=== PATIENT | female | born 1960 | race Caucasian/White ===

== ENCOUNTER → 2016-03-26 | Outpatient (CLI) | payer OTHER ==
--- NOTE | 2016-03-26 14:23 | REP ---
MAXILLOFACIAL CT WITHOUT CONTRAST: HISTORY: Chronic sinusitis. A soft tissue mass is present in the left nasal passage. There is erosion of the left middle nasal turbinate. There is partial erosion of the nasal septum with extension into the right nasal passage. There is erosion of the left uncinate process with extension into the left maxillary sinus. There is partial erosion of the posterior wall of the left ethmoid sinus with extension into the left sphenoid sinus. There is no extension into the left orbit. There is no definite extension into the anterior cranial fossa. There is complete opacification of the residual left ethmoid sinus. There is complete opacification of the sphenoid and left frontal sinuses. There is almost complete opacification of the right frontal sinus. Mild mucosal thickening is present in the left maxillary sinus. Minimal mucosal thickening is present in the right ethmoid sinus. The right maxillary sinus is clear. The right osteomeatal unit is patent. The inferior and right middle nasal turbinates are partially paradoxical. There is moderate deviation of the nasal septum to the right. The medial villalpando of the orbits and optic canals are intact. The carotid canals form a segment of the posterolateral villalpando of the sphenoid sinus. The sphenoid sinus septum inserts into the left internal carotid canal wall. IMPRESSION: There is a soft tissue mass that appears to be arising from the left nasal passage with extension into the right nasal passage, left ethmoid , maxillary, and sphenoid sinuses. This may represent a benign neoplasm such as an inverted papilloma or a malignant neoplasm such as squamous cell carcinoma, adenocarcinoma, adenoid cystic carcinoma, or mucoepidermoid. Signed by Raffy Lopez MD 03/26/2016 02:33 P
== END ==
LOC: M RAD 12:53
PROVIDERS: ATTEND Specialist
DX: D38.5 Neoplasm of uncertain behavior of other respiratory organs (principal)

== ENCOUNTER → 2016-04-15 | Outpatient (CLI) | payer OTHER ==
[2016-04-15 13:29] LABS: INR 0.98
== END ==
LOC: M LAB 12:26
PROVIDERS: ATTEND Specialist
DX: J34.2 Deviated nasal septum (principal)

== ENCOUNTER 2016-05-11 10:35 | Day surgery (SDC) | payer OTHER ==
[~2016-05-11] VITALS: Ht 160 cm; Wt 92.1 kg
[~2016-05-11 10:35] MED LIST: ALBU17IN2 INH; ASPI1TAB PO; CRES40TA PO; CYCL5TA PO; HYDR12.55 PO; K-TA10TA2 PO; MONT10TA2 PO; PULM0.5S INH; ROPI0.5T PO
[2016-05-11] MEDS ORDERED: LR 1,000 ML IV SCH ×2 (11:00→16:00)
[2016-05-11] MEDS ORDERED: MIDAZOLAM INJ 2 MG/2 ML VIAL (J2250) IV PRN (12:45)
[2016-05-11] MEDS ORDERED: LIDOCAINE 2% INJ 100 MG/5 ML SDV (FOR ANES.) As Ordered ONE (12:53)
[2016-05-11] MEDS ORDERED: fentaNYL 250 MCG/5 ML INJECTION (J3010) As Ordered ONE (12:53)
[2016-05-11] MEDS ORDERED: PROPOFOL 200 MG/20 ML VIAL As Ordered ONE (12:53)
[2016-05-11] MEDS ORDERED: MIDAZOLAM INJ 2 MG/2 ML VIAL (J2250) As Ordered ONE (12:53)
[2016-05-11] MEDS ORDERED: ROCURONIUM BROMIDE 50 MG/5 ML VIAL As Ordered ONE (12:53)
[2016-05-11] MEDS ORDERED: METHYLENE BLUE 0.5% (5MG/ML) 10 ML AMP (PROVAYBLUE)(Q9968 PER 1MG) As Ordered ONE (13:39)
[2016-05-11] MEDS ORDERED: LIDOCAINE W/EPINEPHRINE 1% 20ML VIAL As Ordered ONE (13:39)
[2016-05-11] MEDS ORDERED: EPINEPHrine INJ 1 MG/ML 1ML VIAL/AMP As Ordered ONE ×2 (13:40→15:07)
[2016-05-11] MEDS ORDERED: OXYMETAZOLINE NASAL SPRAY (AFRIN) As Ordered ONE (13:41)
[2016-05-11] MEDS ORDERED: dexameTHASONE 4 MG/ML 1ML VIAL (J1100) As Ordered ONE (14:39)
[2016-05-11] MEDS ORDERED: PHENYLephrine HCL 500 MCG/5 ML (100MCG/ML) SYRINGE (J2370) As Ordered ONE (14:44)
[2016-05-11] MEDS ORDERED: ePHEDrine SULFATE 25 MG/5 ML(5MG/ML) SYRINGE As Ordered ONE (14:44)
[2016-05-11] MEDS ORDERED: GLYCOPYRROLATE INJ 0.2 MG/ML 2 ML VIAL As Ordered ONE (14:56)
[2016-05-11] MEDS ORDERED: NEOSTIGMINE 1MG/ML 5 ML SYRINGE (J2710) As Ordered ONE (14:56)
[2016-05-11] MEDS ORDERED: PERCOCET 5MG/325MG TAB PO PRN (16:00)
[2016-05-11] MEDS ORDERED: METOCLOPRAMIDE INJ 10MG/2ML VIAL (J2765) IV PRN (16:00)
[2016-05-11] MEDS ORDERED: ONDANSETRON 4MG/2ML VIAL (J2405) IV PRN (16:00)
[2016-05-11] MEDS ORDERED: fentaNYL 100 MCG/2 ML INJECTION (J3010) IV PRN (16:00)
[2016-05-11] MEDS ORDERED: hydrALAZINE INJ 20 MG/ML VIAL As Ordered ONE (17:10)
[2016-05-11 17:21] VITALS: BP 195/76
[2016-05-11] MEDS ORDERED: hydrALAZINE INJ 20 MG/ML VIAL IV PRN (17:45)
[2016-05-11 19:00] VITALS: BP 140/80
[2016-05-11] MEDS ORDERED: ALBUTEROL SULFATE 2.5 MG/0.5 ML INH NEB SOLN NEB PRN (19:00)
[2016-05-11] MEDS ORDERED: BUDESONIDE 0.5 MG/2 ML INHALATION SUSPENSION INH PRN (19:00)
[2016-05-11 20:00] VITALS: BP 153/90
[2016-05-11] MEDS: rOPINIRole 0.25 MG TAB(REQUIP) PO SCH (20:15)
[2016-05-11] MEDS: DOXYCYCLINE HYCLATE 100 MG TAB PO SCH (20:15)
[2016-05-11] MEDS: PERCOCET 5MG/325MG TAB PO PRN (20:47)
[2016-05-11] MEDS ORDERED: ROSUVASTATIN 10 MG TAB (CRESTOR) PO SCH (21:00)
[2016-05-12] VITALS: BP 162/76
[2016-05-12 04:00] VITALS: BP 178/84
[2016-05-12 08:00] VITALS: BP 140/79
[2016-05-12] MEDS: DOXYCYCLINE HYCLATE 100 MG TAB PO SCH (08:44)
[2016-05-12] MEDS: rOPINIRole 0.25 MG TAB(REQUIP) PO SCH (08:45)
[2016-05-12] MEDS: PERCOCET 5MG/325MG TAB PO PRN (08:45)
[2016-05-12] MEDS ORDERED: MONTELUKAST 10 MG TAB PO SCH (09:00)
[2016-05-12] MEDS ORDERED: POTASSIUM CHLORIDE 10 MEQ SR TABLET PO SCH (09:00)
[2016-05-12] MEDS ORDERED: ASPIRIN 81 MG ENTERIC TAB PO SCH (09:00)
[2016-05-12] MEDS ORDERED: hydroCHLOROthiazide 12.5 MG CAPSULE PO SCH (09:00)
--- NOTE | 2016-05-15 12:09 | RO ---
DATE OF PROCEDURE: 05/11/2016 PREPROCEDURE DIAGNOSES: 1. Left nasal polyposis. 2. Chronic sinusitis. 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 PROCEDURE: Left endoscopic resection of nasal mass with maxillary antrostomy and ethmoidectomy. SURGEON: Dr. José Collins HOP GROWER: ANESTHESIA: INDICATIONS: This is a 55-year-old who presents with left sided nasal obstruction. CT scanning demonstrated an expanding mass without bone destruction. It filled the superior left nasal cavity emerging from the left middle meatus obstructing the maxillary sinus ostia and the anterior ethmoid cells. There is no evidence of any bone destruction, either in the orbits, septum or the cribriform area. DESCRIPTION OF PROCEDURE: Satisfactory general endotracheal tube anesthesia administered, pharyngeal pack was placed. The nose prepared for surgery by placing cotton-soaked pledgets of Afrin solution to the nasal cavity on the left side. Surgery began by using a 0 degree telescope. 1% Xylocaine with 1:100,000 epinephrine was used to inject the obvious nasal mass that could be seen on endoscopy. As the procedure began, it became quite apparent this was not simple inflammatory tissue. It was quite vascular and bleeding was far beyond what you would expect from polyp tissue. With the microdebrider, the mass was rapidly resected to prevent significant bleeding. It was possible to resect the majority of the mass, and then adrenaline pledgets were placed into the middle meatus to identify the normal landmarks. The middle turbinate was partially absent anteriorly after resecting this mass but the septum was intact. The mass seemed to emerge either from the posterior to mid septum inferior or it could have risen from the lateral nasal wall, it was not possible to tell. The gross mass was resected completely into the anterior and posterior ethmoid cells which had been somewhat scalloped out by the mass. The lateral nasal wall was inspected and maxillary sinus ostia was identified. It then was enlarged and mucopus was evacuated from the maxillary sinus. Using the microdebrider, all visible tissue was resected down to the bony framework without attempting to do a complete posterior ethmoidectomy. Frozen sections were sent during the procedure and the results came back undifferentiated or possibly poorly differentiated carcinoma. With this, I elevated to do no further surgery other than to debulk the mass. Adrenalin pledgets were placed for five minutes and these were removed. There was no significant bleeding. A Nasopore pledget was used to pack the cavity which was created. Pharyngeal pack was removed and the throat was suctioned. The patient was awakened, extubated, and sent to recovery in satisfactory condition. She will be seen back in the office in 1 week to await the results of the final pathology.
== END 2016-05-12 12:00 | disposition home or self-care (01) ==
LOC: M SDC 10:35 → M MS5PR 18:22 → M SDC 05-12 12:00
PROVIDERS: ATTEND Specialist
DX: C31.1 Malignant neoplasm of ethmoidal sinus (principal); C30.0 Malignant neoplasm of nasal cavity; J45.909 Unspecified asthma, uncomplicated; I10 Essential (primary) hypertension; E78.5 Hyperlipidemia, unspecified; K21.9 Gastro-esophageal reflux disease without esophagitis; Z79.82 Long term (current) use of aspirin; Z88.0 Allergy status to penicillin; E66.9 Obesity, unspecified; Z79.899 Other long term (current) drug therapy

== ENCOUNTER → 2016-06-02 | Outpatient (CLI) | payer OTHER ==
--- NOTE | 2016-06-02 20:55 | REP ---
MRI BRAIN WITHOUT AND WITH CONTRAST: HISTORY: Ethmoid sinus neoplasm. CONTRAST: ProHance 17 mL COMPARISON: CT 03/26/2016 The patient is status post left uncinectomy, left middle nasal turbinectomy and partial left ethmoidectomy. A small amount of enhancing tissue is present in the anterior left ethmoid region. Mucosal thickening is present in the residual lateral left ethmoid sinus, frontal sinuses and sphenoid sinus. The right ethmoid sinus and maxillary sinuses are clear. Areas of increased signal intensity on T2-weighted images are present in the left temporal and parietal lobe. There is dilatation of the overlying cortical sulci. This represents gliosis and encephalomalacia. There is no intraparenchymal hemorrhage, infarct, mass or midline shift. There is no abnormal intracranial enhancement. There is no hydrocephalus or extracerebral collection. IMPRESSION: 1. Postoperative changes as described above. There is a small amount of enhancing tissue in the anterior left ethmoid region. This may represent granulation tissue, however, the possibility of residual or recurrent tumor cannot be excluded. 2. Left temporal parietal lobe encephalomalacia. Signed by Raffy Lopez MD 06/03/2016 08:48 A
== END ==
LOC: M RAD 17:00
PROVIDERS: ATTEND Specialist
DX: C31.1 Malignant neoplasm of ethmoidal sinus (principal)

== ENCOUNTER → 2017-08-31 | Outpatient (CLI) | payer OTHER | LOC: M RAD 13:21 | DX: C31.1 Malignant neoplasm of ethmoidal sinus (principal); J34.2 Deviated nasal septum | CPT/HCPCS: 70486 ==

== ENCOUNTER → 2018-11-15 | Outpatient (CLI) | payer OTHER, MEDICAID ==
[~2018-11-15] MED LIST changes: -ASPI1TAB PO; +ASPI81TA26 PO; -CYCL5TA PO; +CYCL5TAB PO; +ISOVUE-370 76% 100ML VIAL (Q9967) As Ordered ONE
--- NOTE | 2018-11-15 11:21 | REP ---
Maxillofacial CT study with IV contrast: History: Malignant neoplasm of the ethmoid sinus. 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 Comparison study August 31, 2017. CT contrast dose: 75 mL of intravenous Isovue 370. CT findings: There is a large patent nasoantral window and the patient is status post ethmoid bullectomy. There is a small mucous retention cyst again noted in the posterior most ethmoid air cell on the left. This is slightly larger than on the August 31, 2017 prior study but not new. It measures 10 mm in greatest diameter. There is mild mucosal thickening in one or two ethmoid air cells on the right. Ostiomeatal complexes are patent. Bony nasal septum bows somewhat to the right. There is a small high perforation in the septum also unchanged. The left middle turbinate has been resected. Sinuses are otherwise clear. There is no evidence of recurrent mass. No intraorbital lesion is seen. Frontal sinuses are clear. Bony orbital margins are intact. Impression: 1 cm mucous retention cyst in the posterior ethmoid air cell on the left. Postoperative changes. Otherwise negative. Electronically Signed by Nate Peralta MD 11/15/2018 12:39 P
== END ==
LOC: M RAD 09:30
PROVIDERS: ATTEND Specialist
DX: C31.1 Malignant neoplasm of ethmoidal sinus (principal)
CPT/HCPCS: 70487; Q9967

== ENCOUNTER → 2019-04-03 | Outpatient (REF) | payer OTHER, MEDICAID ==
[~2019-04-03] MED LIST changes: -ISOVUE-370 76% 100ML VIAL (Q9967) As Ordered ONE; -MONT10TA2 PO; +MONT10TA4 PO; -ROPI0.5T PO; +ROPI0.5T3 PO
== END ==
LOC: M LAB REF 15:41
PROVIDERS: ATTEND Specialist
DX: D23.39 Other benign neoplasm of skin of other parts of face (principal)

== ENCOUNTER → 2020-04-23 | Outpatient (CLI) | payer OTHER, MEDICAID ==
[~2020-04-23] MED LIST changes: +MONT10TA10 PO; -MONT10TA4 PO
[2020-04-23 12:44] LABS: BASO % 0.4 % (0.0-1.0); EOS # 0.2 10^3/uL (0.0-0.5); EOS % 2.5 % (0.0-3.0); HEMATOCRIT 37.9 % (36.0-47.0); HEMOGLOBIN 12.4 g/dl (12.0-15.5); LYMPH # 1.3 10^3/uL (1.5-5.0); LYMPH % 17.9 % (24.0-44.0); MEAN CORPUSCULAR HEMOGLOBIN 28.4 pg (27.0-33.0); MEAN CORPUSCULAR HGB CONC 32.7 g/dl (32.0-36.5); MEAN CORPUSCULAR VOLUME 86.9 fl (80.0-96.0); MONO # 0.5 10^3/uL (0.0-0.8); MONO % 7.2 % (2.0-8.0); NEUTROPHILS # 5.1 10^3/uL (1.5-8.5); NEUTROPHILS % 71.7 % (36.0-66.0); PLATELET COUNT, AUTOMATED 242 10^3/uL (150-450); RED BLOOD COUNT 4.36 10^6/uL (4.00-5.40); WHITE BLOOD COUNT 7.1 10^3/uL (4.0-10.0)
[2020-04-23 13:21] LABS: BLOOD UREA NITROGEN 14 MG/DL (7-18); CALCIUM LEVEL 8.9 MG/DL (8.5-10.1); CARBON DIOXIDE LEVEL 35 MEQ/L (21-32); CHLORIDE LEVEL 103 MEQ/L (98-107); CREATININE FOR GFR 0.82 MG/DL (0.55-1.30); GLOMERULAR FILTRATION RATE > 60.0 (>51); GLUCOSE, FASTING 98 MG/DL (70-100); POTASSIUM SERUM 3.2 MEQ/L (3.5-5.1); SODIUM LEVEL 142 MEQ/L (136-145)
== END ==
LOC: M LAB 11:46
PROVIDERS: ATTEND Internal Medicine Cardiovascular Disease
DX: Z79.899 Other long term (current) drug therapy (principal)

== ENCOUNTER → 2023-03-12 | Outpatient (CLI) | payer OTHER, MEDICAID ==
[~2023-03-12] MED LIST changes: -K-TA10TA2 PO; -MONT10TA10 PO; +MONT10TA97 PO; +POTA-165 PO; -ROPI0.5T3 PO; +ROPI0.5T33 PO
== END ==
LOC: M RAD 11:12
PROVIDERS: ATTEND Otolaryngology
DX: E04.2 Nontoxic multinodular goiter (principal)

== ENCOUNTER 2023-10-01 11:32 | Emergency (ER) | payer OTHER, MEDICAID ==
[~2023-10-01] VITALS: Ht 160 cm; Wt 86.8 kg
[2023-10-01 13:32] LABS: BASO % 0.5 % (0.0-1.0); EOS # 0.2 10^3/uL (0.0-0.5); EOS % 2.7 % (0.0-3.0); HEMATOCRIT 36.5 % (36.0-47.0); HEMOGLOBIN 11.7 g/dl (12.0-15.5); LYMPH # 1.4 10^3/uL (1.5-5.0); LYMPH % 23.2 % (24.0-44.0); MEAN CORPUSCULAR HEMOGLOBIN 27.8 pg (27.0-33.0); MEAN CORPUSCULAR HGB CONC 32.1 g/dl (32.0-36.5); MEAN CORPUSCULAR VOLUME 86.7 fl (80.0-96.0); MONO # 0.4 10^3/uL (0.0-0.8); MONO % 6.2 % (2.0-8.0); NEUTROPHILS # 3.9 10^3/uL (1.5-8.5); NEUTROPHILS % 67.1 % (36.0-66.0); PLATELET COUNT, AUTOMATED 205 10^3/uL (150-450); RED BLOOD COUNT 4.21 10^6/uL (4.00-5.40); WHITE BLOOD COUNT 5.8 10^3/uL (4.0-10.0)
[2023-10-01 13:45] LABS: ERYTHROCYTE SEDIMENTATION RATE 30 mm/hr (0-30)
[2023-10-01 13:49] LABS: INR 1.08; PARTIAL THROMBOPLASTIN TIME 30.6 SECONDS (24.8-34.2); PROTHROMBIN TIME 13.7 SECONDS (12.5-14.5)
[2023-10-01 13:53] LABS: C REACTIVE PROTEIN QUANTITATIV < 0.40 MG/DL (<1.0)
[2023-10-01 13:55] LABS: ALKALINE PHOSPHATASE 61 U/L (46-116); ALT/SGPT 58 U/L (7.0-40); AST/SGOT 45 U/L (<34); BILIRUBIN,DIRECT 0.1 MG/DL (<0.4); BILIRUBIN,TOTAL 0.4 MG/DL (0.3-1.2); BLOOD UREA NITROGEN 17 MG/DL (9-23); CALCIUM LEVEL 8.7 MG/DL (8.3-10.6); CARBON DIOXIDE LEVEL 31 MMOL/L (20-31); CHLORIDE LEVEL 106 MMOL/L (98-107); CREATININE FOR GFR 0.62 MG/DL (0.55-1.30); GLOMERULAR FILTRATION RATE > 60.0 (>45); GLUCOSE, FASTING 88 MG/DL (74-106); POTASSIUM SERUM 3.8 MMOL/L (3.5-5.1); SODIUM LEVEL 139 MMOL/L (136-145); TOTAL PROTEIN 7.3 G/DL (5.7-8.2)
[2023-10-01 14:06] LABS: PROCALCITONIN 0.12 ng/ml
[2023-10-01 14:53] VITALS: BP 160/80; TEMP 97; O2SAT 98
== END 2023-10-01 15:04 | disposition home or self-care (01) ==
LOC: M ED 11:32
DX: I83.812 Varicose veins of left lower extremity with pain (principal); M79.662 Pain in left lower leg; I25.2 Old myocardial infarction; I10 Essential (primary) hypertension; Z86.79 Personal history of other diseases of the circulatory system; Z88.0 Allergy status to penicillin; Z79.82 Long term (current) use of aspirin; Z79.52 Long term (current) use of systemic steroids; Z79.899 Other long term (current) drug therapy

== ENCOUNTER → 2023-10-01 | Outpatient (CLI) | payer OTHER, MEDICAID ==
[2023-10-01 16:33] LABS: BASO % 0.5 % (0.0-1.0); EOS # 0.2 10^3/uL (0.0-0.5); EOS % 2.6 % (0.0-3.0); HEMATOCRIT 34.8 % (36.0-47.0); HEMOGLOBIN 11.3 g/dl (12.0-15.5); LYMPH # 1.2 10^3/uL (1.5-5.0); LYMPH % 19.8 % (24.0-44.0); MEAN CORPUSCULAR HEMOGLOBIN 28.1 pg (27.0-33.0); MEAN CORPUSCULAR HGB CONC 32.5 g/dl (32.0-36.5); MEAN CORPUSCULAR VOLUME 86.6 fl (80.0-96.0); MONO # 0.3 10^3/uL (0.0-0.8); MONO % 5.2 % (2.0-8.0); NEUTROPHILS # 4.2 10^3/uL (1.5-8.5); NEUTROPHILS % 71.4 % (36.0-66.0); PLATELET COUNT, AUTOMATED 202 10^3/uL (150-450); RED BLOOD COUNT 4.02 10^6/uL (4.00-5.40); WHITE BLOOD COUNT 5.8 10^3/uL (4.0-10.0)
[2023-10-01 16:38] LABS: ERYTHROCYTE SEDIMENTATION RATE 29 mm/hr (0-30)
[2023-10-01 16:53] LABS: ALKALINE PHOSPHATASE 57 U/L (46-116); ALT/SGPT 52 U/L (7.0-40); AST/SGOT 41 U/L (<34); BILIRUBIN,TOTAL 0.4 MG/DL (0.3-1.2); BLOOD UREA NITROGEN 16 MG/DL (9-23); CALCIUM LEVEL 8.6 MG/DL (8.3-10.6); CARBON DIOXIDE LEVEL 29 MMOL/L (20-31); CHLORIDE LEVEL 106 MMOL/L (98-107); CREATININE FOR GFR 0.61 MG/DL (0.55-1.30); GLOMERULAR FILTRATION RATE > 60.0 (>45); GLUCOSE, FASTING 88 MG/DL (74-106); POTASSIUM SERUM 3.4 MMOL/L (3.5-5.1); SODIUM LEVEL 139 MMOL/L (136-145); TOTAL PROTEIN 7.1 G/DL (5.7-8.2)
[2023-10-03 03:52] LABS: HOMOCYST(E)INE SERUM 8.2 umol/L (<10.4)
[2023-10-04 16:27] LABS: ANA PATTERN Nuclear, Homogeneous (NEGATIVE); ANA PATTERN 2 Nuclear, Speckled; ANA SCREEN, IFA POSITIVE (NEGATIVE)
[2023-10-05 00:01] LABS: CARDIOLIPIN IGA ANTIBODY 4.6 APL-U/mL (<20.0); CARDIOLIPIN IGG ANTIBODY < 2.0 GPL-U/mL (<20.0)
[2023-10-06 00:41] LABS: PROTEIN C FUNCTIONAL ACTIVITY 104 % normal (70-180); PROTEIN S FUNCTIONAL ACTIVITY 73 % normal (60-140)
[2023-10-07 09:26] LABS: DRVV SCREEN 39.2 SECONDS
[2023-10-07 16:27] LABS: ANCA SCREEN P-ANCA POS (Negative)
[2023-10-08 08:17] LABS: ANTI THROMBIN 3 ANTIGEN IMMUNO 87 % normal (80-120); ANTI THROMBIN 3 FUNCT ACTIVITY 95 % normal (80-135)
== END ==
LOC: M LAB 15:16
PROVIDERS: ATTEND Psychiatry & Neurology Neurology
DX: I82.509 Chronic embolism and thrombosis of unspecified deep veins of unspecified lower extremity (principal); L95.9 Vasculitis limited to the skin, unspecified; I63.9 Cerebral infarction, unspecified

== ENCOUNTER → 2024-03-23 | Outpatient (REF) | payer OTHER, MEDICAID ==
[~2024-03-23] MED LIST changes: -CYCL5TAB PO; +CYCL5TAB4 PO
== END ==
LOC: M SFHCDERM 17:39
PROVIDERS: ATTEND Physician Assistant
DX: L82.1 Other seborrheic keratosis (principal)